=== PATIENT | female | born 1955 | race Caucasian/White ===

== ENCOUNTER 2019-08-14 11:09 | Outpatient (CLI) | payer MEDICARE, OTHER, SELFPAY ==
[2019-08-14 14:15] LABS: INR 2.08 (0.8-1.2)
== END 2019-08-14 11:10 | disposition home or self-care (01) ==
LOC: LAB 11:16
PROVIDERS: Visit Provider Internal Medicine Hematology & Oncology
DX: Z79.01 Long term (current) use of anticoagulants (principal); Z86.711 Personal history of pulmonary embolism
CPT/HCPCS: 36415; 85610